=== PATIENT | female | born 1950 | race Caucasian/White ===

== ENCOUNTER 2017-07-08 14:52 | Emergency (ER) | payer BC ==
[~2017-07-08] VITALS: Ht 157.5 cm; Wt 63.5 kg
[2017-07-08 15:07] VITALS: BP 156/73
[2017-07-08] MEDS ORDERED: REGLAN IV STA (15:34)
[2017-07-08] MEDS ORDERED: BENADRYL IV STA (15:34)
--- NOTE | 2017-07-08 15:42 | ER.PDOC ---
General Chief Complaint: Headache Stated Complaint: MIGRAINE,VOMITING Time seen by MD: 15:33 Source: patient Exam Limitations: no limitations History of Present Illness Timing/Duration: 4-6 hours Severity/Quality: moderate, constant, pressure, other (squeezing, like previous "migraines" since 11 yrs old.) Prior Headaches/Recent Trauma: no recent headache/trauma, frequent headaches Associated Symptoms: nausea/vomiting, sensitivity to light Prior symptoms/Treatment: Similar symptoms previous Allergies: Coded Allergies: codeine (Verified Allergy, Unknown, Hives, 07/08/17) Past Medical History Medical History: no pertinent history LMP (females 10-50): postmenopause Social History Smoking: non-smoker Alcohol Use: none Drug Use: none Review of Systems Constitutional: see HPI Eyes: see HPI Ears, Nose, Mouth, Throat: no symptoms reported Respiratory: no symptoms reported Cardiovascular: no symptoms reported Gastrointestinal: see HPI Genitourinary: no symptoms reported Musculoskeletal: no symptoms reported Skin: no symptoms reported Psychiatric/Neurological: see HPI, headache All Other Systems: Reviewed and Negative Physical Exam General Appearance: WD/WN, Mild Distress Head/Eyes: eyes nml inspection, no facial swelling, no nystagmus, PERRL (fundi nml) ENT: nml ENT inspection Neck: nml inspection, Supple Cardiovascular: Normal Peripheral Pulses, Regular Rate, Rhythm, No Edema Respiratory: chest non-tender, lungs clear, normal breath sounds Gastrointestinal: Normal Bowel Sounds, No Organomegaly, No Pulsatile Mass, Non Tender Back: Normal Inspection Extremities: Normal Range of Motion Psychiatric: Alert, Oriented x 3 Cranial Nerves: Normal Hearing, Normal Speech Motor/Sensory: No Motor Deficit, No Sensory Deficit Skin: Warm/Dry, Normal Color Results/Orders Results/Orders Laboratory Tests Test 07/08/17 16:10 White Blood Count 11.4 10^3/uL (4.5-11.0) Red Blood Count 4.78 10^6/uL (4.00-5.20) Hemoglobin 13.7 g/dL (12.0-15.0) Hematocrit 42.6 % (36.0-46.0) Mean Corpuscular Volume 89.1 fL (78-100) Mean Corpuscular Hemoglobin 28.7 pg (26-34) Mean Corpuscular Hemoglobin Concent 32.2 g/dL (33-37) Red Cell Distribution Width 12.5 % (11.5-14.5) Platelet Count 245 10^3/uL (150-400) Mean Platelet Volume 9.6 fL (7.8-11.0) Neutrophils (%) (Auto) 88.1 % (41.0-85.0) Lymphocytes (%) (Auto) 8.3 % (24.0-44.0) Monocytes (%) (Auto) 3.2 % (5.0-12.0) Neutrophils # (Auto) 10.1 10^3/uL (1.8-7.7) Lymphocytes # (Auto) 1.0 10^3/uL (1.0-4.8) Monocytes # (Auto) 0.4 10^3/uL (0.3-0.8) Absolute Immature Granulocyte (auto 0.04 10^3 u/L (0-2) Eosinophils % 0.0 % (0.0-5.0) Basophils % 0.1 % (0.0-0.2) Basophils # 0.0 10^3/uL (0.0-0.1) Eosinophil Count 0.0 10^3/uL (0.0-0.2) Sodium Level 140 mmol/L (132-145) Potassium Level 4.4 mmol/L (3.6-5.2) Chloride Level 104.0 mmol/L (96-109) Carbon Dioxide Level 24.5 mmol/L (20.0-32) Anion Gap 15.9 Blood Urea Nitrogen 12 mg/dL (7-18) Creatinine 0.95 mg/dL (0.59-1.40) Estimated GFR () 71.2 (>/=60) BUN/Creatinine Ratio 12.0 Glucose Level 118 mg/dL (70-110) Calcium Level 9.5 mg/dL (8.4-10.5) Total Bilirubin 0.5 mg/dL (0.2-1.0) Aspartate Amino Transf (AST/SGOT) 30 U/L (0-35) Alanine Aminotransferase (ALT/SGPT) 43 U/L (12-78) Alkaline Phosphatase 97 U/L (50-136) Total Protein 8.1 g/dL (6.4-8.2) Albumin 3.8 g/dL (3.4-5.0) Globulin 4.3 Percent Immature Gran (Cell Imm) 0.30 % (0.00-0.50) Administered Medications Medications (Trade) Dose Ordered Sig/Carlos A Route PRN Reason Start Time Stop Time Status Last Admin Dose Admin Diphenhydramine HCl (Benadryl) 25 mg STAT STAT IV 07/08/17 15:34 07/08/17 15:39 DC 07/08/17 16:28 Metoclopramide HCl (Reglan) 10 mg STAT STAT IV 07/08/17 15:34 07/08/17 15:39 DC 07/08/17 16:28 Ketorolac Tromethamine (Toradol) 30 mg STAT ONCE IV 07/08/17 16:00 07/08/17 16:01 DC 07/08/17 16:28 Progress Progress Labs all nml. At 18:30 states much improved. VSS. Departure Time of Disposition: 18:33 Disposition: 01 HOME, SELF-CARE Impression: Primary Impression: Migraine Additional Impression: Dehydration Condition: Stable Patient Instructions: Nausea and Vomiting Referrals: PCP,UNKNOWN (PCP) PRIMARY CARE PROVIDER Duration or Time Spent with Pa: 45 min JAQUAN FARMER DO Jul 08, 2017 15:42
[2017-07-08] MEDS ORDERED: TORADOL IV ONE (16:00)
[2017-07-08] MEDS ORDERED: LACTATED RINGERS 1,000 ML IV ONE ×2 (16:00)
[2017-07-08 16:15] LABS: BASOPHIL % 0.1 % (0.0-0.2); HEMOGLOBIN 13.7 g/dL (12.0-15.0); LYMPHOCYTES % 8.3 % (24.0-44.0); MEAN CELL HGB 28.7 pg (26-34); MEAN CELL HGB CONCENTRATION 32.2 g/dL (33-37); MEAN CORP VOLUME 89.1 fL (78-100); MEAN PLATELET VOLUME 9.6 fL (7.8-11.0); MONOCYTES # 0.4 10^3/uL (0.3-0.8); MONOCYTES % 3.2 % (5.0-12.0); NEUTROPHIL # 10.1 10^3/uL (1.8-7.7); NEUTROPHILS % 88.1 % (41.0-85.0); RED CELL DISTRIBUTION WIDTH 12.5 % (11.5-14.5); WHITE BLOOD CELL 11.4 10^3/uL (4.5-11.0)
[2017-07-08] MEDS ORDERED: BENADRYL ONE (16:15)
[2017-07-08] MEDS ORDERED: LACTATED RINGERS 1,000 ML ONE ×2 (16:15→18:31)
[2017-07-08] MEDS ORDERED: TORADOL ONE (16:16)
[2017-07-08 16:29] LABS: CALCIUM 9.5 mg/dL (8.4-10.5); CARBON DIOXIDE 24.5 mmol/L (20.0-32)
[2017-07-08] MEDS ORDERED: ULTRAM PO STA (18:35)
--- NOTE | 2017-07-08 18:43 | NUR ---
LR Patient started on second LR at 12mL per hour.
[2017-07-08] MEDS ORDERED: ULTRAM ONE (18:44)
[2017-07-08] MEDS ORDERED: ZOFRAN ONE (19:04)
[2017-07-08 19:20] VITALS: BP 160/65
[2017-07-08] MEDS ORDERED: ZOFRAN IV STA (19:21)
[2017-07-08 19:25] VITALS: BP 160/65
== END 2017-07-08 19:20 | disposition home or self-care (01) ==
LOC: ER 14:52
DX: G43.909 Migraine, unspecified, not intractable, without status migrainosus (principal); E86.0 Dehydration; Z88.5 Allergy status to narcotic agent
CPT/HCPCS: 36415; 80053; 85025; 96361; 96374; 96375; 99285; J1200; J1885; J2405; J7120 ×2